=== PATIENT | male | born 1990 | race Caucasian/White ===

== ENCOUNTER 2017-09-25 15:18 | Emergency (ER) | payer SELFPAY ==
[~2017-09-25] VITALS: Ht 182.9 cm; Wt 93.0 kg
[2017-09-25 15:29] VITALS: TEMP 36.8; Ht 182.9 cm; Wt 93.0 kg
[2017-09-25] MEDS ORDERED: DOCU-94 PO (16:43)
[2017-09-25] MEDS ORDERED: HYDR1AER23 PR (16:43)
[2017-09-25 17:00] VITALS: BP 113/79; PULSE 85; O2SAT 96
--- NOTE | 2017-09-25 17:05 | EMERGENCY ROOM VISIT NOTE ---
History First contact with patient: 15:37 Chief Complaint: PAIN (GENERALIZED) Stated Complaint: PAIN IN BUTTOCKS History of Present Illness The patient is a 26 year old male who presents to the Emergency Room with complaints of pain in his rectal area for the past few hours. The patient states that his symptoms began to worsen while he was at work. The patient was lifting a box that weighed roughly 80 to 100 pounds. 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 He felt immediate pain in his rectal area, that worsens with palpation and with walking. The patient reports some ongoing past symptoms of blood with wiping after using the toilet. He does not eat regular meals because of his work schedule. He does not have chronic medical disease or inflammatory bowel disease. He has not had nausea or vomiting. No fever or chills. He rates his discomfort a 7/10. Review of Systems More than 10 systems were reviewed and otherwise negative with the exception of history of present illness. Past Medical/Surgical History Medical Problems: (1) Tobacco Use Disorder Surgical Problems: (1) No significant past surgical history Family History No pertinent family history Social History Smoking Status: Never Smoker Alcohol Use: none Marital Status: single Occupation Status: employed Current/Historical Medications Scheduled Docusate Sodium (Colace), 1 CAP PO BID Hydrocortisone/Pramoxine (Proctofoam Hc), 1 APPL IA BID Physical Exam Vital Signs Date Time Temp Pulse Resp B/P (MAP) Pulse Ox O2 Delivery O2 Flow Rate FiO2 09/25/17 15:29 36.8 100 18 167/83 99 Room Air Physical Exam VITALS: Vitals are noted on the nurse's note and reviewed by myself. Vital signs stable. GENERAL: Well-developed, well-nourished, white male, who is in no acute distress and resting comfortably. Patient is cooperative with the examination. HEART: Regular rate and rhythm without murmurs gallops or rubs. LUNGS: Clear to auscultation bilaterally without wheezes, rales or rhonchi. No retractions or accessory muscle use. ABDOMEN: Positive normal bowel sounds x 4. Soft, nontender, without masses or organomegaly. No guarding or rebound tenderness. : Perineal space is with 2 obvious external hemorrhoids measuring approximately 5 mm in size each. Neither of these are thrombosed or friable. There is no evidence of rectal prolapse, fissure, or fistula. No other significant abnormality or infection noted. Medical Decision & Procedures ED Course Physical exam and history were performed. Nursing notes, EMR, and Medication List were personally reviewed. Patient appears to have rectal pain after lifting at work earlier today. On examination he does have to hemorrhoids, which are felt to be the cause of his discomfort. He does report some history of issues that could be attributed to small her chronic hemorrhoids in the past. At this point the patient does not have thrombosis or infection. He will be treated with Colace and Proctofoam. He is to use [id number] analgesics. I will give him a note for work to prevent him from lifting as he heals. He will also be given information to follow with a general surgeon for possible definitive care. The patient was otherwise invited back to the ER with any new, worsening, or concerning symptoms. The chart was completed utilizing [employer] Voice Recognition Software. Grammatical errors, random word insertions, pronoun errors, and incomplete sentences are an occasional consequence of this system due to software limitations, ambient noise, and hardware issues. Any formal questions or concerns about the content, text, or information contained within the body of this dictation should be directly addressed to the provider for clarification. . Medical Decision Differential diagnosis includes, but is not limited to: Hemorrhoid, rectal prolapse, fistula, hernia, infection, and others Impression Primary Impression: Hemorrhoids Departure Information Dispostion Home / Self-Care Condition GOOD Prescriptions Docusate Sodium (COLACE) 100 Mg Cap 1 CAP PO BID for 30 Days, #60 CAP 2 Refills Prov: Asif Ni PA-C 09/25/17 Hydrocortisone/Pramoxine (Proctofoam Hc) Aer 1 APPL IA BID for 14 Days, #10 GM 2 Refills Prov: Asif Ni PA-C 09/25/17 Referrals Arron Mandujano, DO Forms HOME CARE DOCUMENTATION FORM, Work Instructions, Additional Instructions: Patient was seen and evaluated today in the emergency department fo medical care. Do not lift greater than 10 pounds at work for the next days. IMPORTANT VISIT INFORMATION Patient Instructions [facility] Additional Instructions You were seen and evaluated today on an emergency basis only. This is not a substitute for, or an effort to provide, complete comprehensive medical care. It is not possible to recognize and treat all injuries or illnesses in a single emergency department visit. For this reason it is recommended that you followup with your primary care physician with any ongoing or persistent symptoms. You may wish to follow with general surgery, Dr. Mandujano, for additional evaluation and possible definitive treatment. Do not lift greater than 10 pounds for the next week. Drink plenty of fluids and remain well hydrated. For baseline pain relief you may alternate ibuprofen and acetaminophen every 4 hours for pain control. Take 600 mg ibuprofen (Advil) and then 4 hours later take 1000 mg acetaminophen (Tylenol). Do not take more than 3000 mg acetaminophen in a single day. Use Colace twice daily to help soften your stools. Apply Proctofoam twice daily. You are welcome to return to the emergency department anytime with new, worsening, or concerning symptoms. Work Instructions Additional Work Instructions: Patient was seen and evaluated today in the emergency department for medical care. Do not lift greater than 10 pounds at work for the next 7 days.
== END 2017-09-25 17:00 | disposition home or self-care (01) ==
LOC: C.EDB 15:20 → C.EDD 17:00
DX: K64.9 Unspecified hemorrhoids (principal)

== ENCOUNTER 2017-11-24 15:23 | Emergency (ER) | payer SELFPAY ==
[~2017-11-24] VITALS: Ht 182.9 cm; Wt 83.8 kg
[~2017-11-24 15:23] MED LIST: DOCU-94 PO; HYDR1AER23 PR
[2017-11-24 15:24] VITALS: TEMP 36.9; Ht 182.9 cm; Wt 83.8 kg
[2017-11-24] MEDS ORDERED: BUPIVACAINE 0.5 % 5 MG/1 ML MPF 30ML VIAL INFIL ONE (15:45)
[2017-11-24] MEDS ORDERED: LIDOCAINE 1% BUFFERED INJ 20 ML VIAL INFIL ONE (15:45)
--- NOTE | 2017-11-24 16:58 | EMERGENCY ROOM VISIT NOTE ---
ED Visit Note First contact with patient: 15:33 CHIEF COMPLAINT: Left thumb laceration at work today HISTORY OF PRESENT ILLNESS: Patient is a [id number] 27-year-old white male who presents to the emergency department for evaluation of a laceration to the left thumb that he sustained roughly 45 minutes ago. He was using a new, very sharp knife to cut apples at work, when he accidentally cut the left thumb. He notes a mild, throbbing pain that he rates a 5/10. The bleeding stopped shortly after the injury and there is no weakness or numbness the thumb. REVIEW OF SYSTEMS: NEUROLOGICAL: No headache, change in mental status, weakness, numbness, or dizziness. GENERAL: No fever or chills, easy fatigue, loss of appetite, or significant weight change. PMH: Electronic medical records are reviewed and summarized as above/below. See Problem List. Tetanus is up-to-date. SOCIAL HISTORY: Patient lives at home. Smoker. PHYSICAL EXAM: Vital Signs: Reviewed Nurse's notes. There is a 3 cm long flap- like laceration on the tip of the left thumb, a extending into the distal portion of the nail/nail bed. The edges are gaping apart. There is no foreign material in the wound and it looks clean. There is no active bleeding. No deep structures such as tendons or nerves are seen in the base of the wound. Extension, flexion and abduction and adduction of the thumb is full and strong. Sensation to pain and light touch is intact. EMERGENCY DEPARTMENT COURSE: Using sterile technique, the finger was prepped with Betadine, and anesthetized with a digital block using a 2:1 mixture of 1% plain buffered lidocaine and 0.5% Sensorcaine. When adequate anesthesia was obtained the finger was reprepped with Betadine, and wound was irrigated copiously with normal saline solution. Distal portion of the nail was removed to completely exposed the entire length of the laceration. The laceration was then repaired with 6, 5-0 nylon sutures. There is no evidence for fracture, nerve or vascular injury. I do not suspect tendinous involvement. The patient was given a note to keep him out of work for the remainder of this evening due to the digital block. He was given a [place] home pack to use as needed for pain. Medication reconciliation: I attest that I have personally reviewed the patient' s current medication list. Blood pressure screening: Patient was found to have a slightly elevated blood pressure due to circumstances. I do not believe that the patient requires hypertension monitoring. Problem List Medical Problems: (1) Constipation Status: Resolved (2) Constipation Status: Resolved (3) Facial laceration Status: Resolved (4) Hemorrhoids Status: Resolved (5) Lymphadenitis Status: Resolved (6) Multiple facial bone fractures Status: Resolved (7) Shingles Status: Resolved (8) Shingles Status: Resolved (9) Shingles Status: Resolved (10) Tobacco Use Disorder Status: Chronic (11) Work related injury Status: Resolved Surgical Problems: (1) No significant past surgical history Status: Chronic Current/Historical Medications No Active Prescriptions or Reported Meds Allergies Coded Allergies: No Known Allergies (Unverified , 11/24/17) Vital Signs Date Time Temp Pulse Resp B/P (MAP) Pulse Ox O2 Delivery O2 Flow Rate FiO2 11/24/17 17:36 89 138/90 98 11/24/17 15:24 36.9 95 16 154/98 99 Room Air Medications Administered Medications (Trade) Dose Ordered Sig/Esbastián Route Start Time Stop Time Status Last Admin Dose Admin Lidocaine HCl (Buffered Lidocaine 1% Inj) 20 ml ONE ONCE INFIL 11/24/17 15:45 11/24/17 15:46 DC 11/24/17 15:45 20 ML Bupivacaine HCl (Marcaine 0.5% MPF Inj) 30 ml NOW ONCE INFIL 11/24/17 15:45 11/24/17 15:46 DC 11/24/17 15:45 30 ML Acetaminophen/ Hydrocodone Bitart ([place] 5/325mg Home Pack) 1 homepack UD ONCE PO 11/24/17 17:00 11/24/17 17:01 DC 11/24/17 17:00 1 HOMEPACK Departure Information Impression Primary Impression: Laceration of thumb with damage to nail Additional Impression: Work related injury Prescriptions No Active Prescriptions or Reported Meds Referrals No Doctor, Assigned (PCP) Patient Instructions [facility] Additional Instructions Ibuprofen(Motrin, Advil) may be used for fever or pain. Use 600mg every six hours as needed. Take with food. Avoid using more than 2400mg in a 24 hour period. Do not use 2400mg per day for more than three consecutive days without physician direction. Prolonged inappropriate use can lead to stomach upset or ulcers. (AND/OR) Acetaminophen(Tylenol) may be used for fever or pain. Use 1000mg every six hours as needed. Avoid using more than 3000mg in a 24 hour period. Hydrocodone/Acetaminophen ([place]) 5/325 mg: Take 1-2 pills every four hours for breakthrough pain. Avoid alcohol, operating machinery or dangerous equipment, working on ladders or roofs, DRIVING, or situations where being under the influence may be dangerous. It is recommended to use an [id number] stool softener such as Colace, 100mg twice daily while taking this medication to avoid constipation. Keep wound clean and dry. Do not allow any crusting or dried blood to accumulate on sutures. Clean gently with mild soap and water. Use an antibiotic ointment for 3-4 days, then let wound dry. Suture removal in 12-14 days. Return sooner for any signs of infection (increasing redness, swelling, drainage). Ice and elevate for swelling and pain. Problem Qualifiers
[2017-11-24] MEDS ORDERED: NORCO 5/325MG HOME PACK PO ONE (17:00)
[2017-11-24 17:36] VITALS: BP 138/90; PULSE 89; O2SAT 98
== END 2017-11-24 17:38 | disposition home or self-care (01) ==
LOC: C.EDB 15:23 → C.EDD 17:38
DX: S61.112A Laceration without foreign body of left thumb with damage to nail, initial encounter (principal); W26.0XXA Contact with knife, initial encounter; Y93.G9 Activity, other involving cooking and grilling; Y99.0 Civilian activity done for income or pay; F17.200 Nicotine dependence, unspecified, uncomplicated